=== PATIENT | female | born 1955 | race Caucasian/White ===

== ENCOUNTER 2017-08-31 18:01 | Emergency (ER) | payer MEDICAID ==
[2017-08-31] MEDS: KETOROLAC 60 MG INJ IM (20:03)
[2017-08-31] MEDS: morphine 4 MG/ML VIAL IM (21:23)
== END 2017-08-31 23:17 | disposition left against medical advice (07) ==
LOC: FTE 18:01
DX: M79.601 Pain in right arm (principal); M54.2 Cervicalgia
CPT/HCPCS: 72100; 72125; 96372; 99285-25

== ENCOUNTER 2018-01-07 00:07 | Emergency (ER) | payer MEDICAID ==
[2018-01-07] MEDS: KETOROLAC 30 MG INJ IM (02:26)
== END 2018-01-07 02:45 | disposition home or self-care (01) ==
LOC: FTE 00:07
DX: K08.89 Other specified disorders of teeth and supporting structures (principal)
CPT/HCPCS: 96372; 99284-25

== ENCOUNTER 2018-05-23 18:51 | Emergency (ER) | payer MEDICAID ==
[2018-05-23] MEDS: AZITHROMYCIN 250 MG TAB PO (20:07)
[2018-05-23] MEDS: CEFTRIAXONE 250 MG INJ IM (20:08)
[2018-05-23 20:44] LABS: ADD UMIC YES; UR ASCORBIC ACID 40 mg/dL (NEGATIVE); UR BILIRUBIN (Dip) NEGATIVE (NEGATIVE); UR BLOOD (Dip) NEGATIVE (NEGATIVE); UR CLARITY CLOUDY (CLEAR); UR COLOR YELLOW (YELLOW); UR GLUCOSE (Dip) NEGATIVE (NEGATIVE); UR KETONES (Dip) NEGATIVE (NEGATIVE); UR LEUKOCYTE ESTERASE (Dip) 3+ Leu/ul (NEGATIVE); UR MUCUS FEW /HPF (NONE SEEN); UR NITRITE (Dip) NEGATIVE (NEGATIVE); UR RBC 14 /HPF (0-5); UR SPECIFIC GRAVITY (Dip) 1.021 (1.003-1.030); UR TOTAL PROTEIN (Dip) NEGATIVE (NEGATIVE); UR UROBILINOGEN (Dip) 1+ mg/dL (NEGATIVE); UR WBC > 182 /HPF (0-5)
== END 2018-05-23 21:15 | disposition home or self-care (01) ==
LOC: FTE 18:51
DX: N72 Inflammatory disease of cervix uteri (principal)
CPT/HCPCS: 81001; 81025; 87591; 96372; 99284-25

== ENCOUNTER 2018-05-27 23:21 | Emergency (ER) | payer MEDICAID ==
[2018-05-28] MEDS ORDERED: ONDANSETRON (ODT) 4 MG TAB ODT (02:07)
[2018-05-28] MEDS ORDERED: DICYCLOMINE 10 MG CAP PO (02:30)
== END 2018-05-28 05:06 | disposition left against medical advice (07) ==
LOC: FTE 23:21
DX: K52.9 Noninfective gastroenteritis and colitis, unspecified (principal)
CPT/HCPCS: 99282; Z7502

== ENCOUNTER 2018-10-18 10:09 | Emergency (ER) | payer MEDICAID ==
[2018-10-18 11:07] LABS: URINE BLOOD (Dip) POC Trace-intact (NEGATIVE); URINE GLUCOSE (Dip) POC Negative (NEGATIVE); URINE KETONES (Dip) POC Negative (NEGATIVE); URINE LEUKOCYTE EST (Dip) POC 3+ (NEGATIVE); URINE NITRITE (Dip) POC Negative (NEGATIVE); URINE TOTAL PROTEIN POC 2+ (NEGATIVE)
== END 2018-10-18 11:45 | disposition home or self-care (01) ==
LOC: FTE 10:09
DX: N39.0 Urinary tract infection, site not specified (principal)
CPT/HCPCS: 81003; 99283

== ENCOUNTER 2018-12-02 10:12 | Emergency (ER) | payer MEDICAID ==
[2018-12-02 11:08] LABS: ADD MAN DIFF? NO
[2018-12-02 11:09] LABS: ABNORMAL IP MESSAGE 1; BASOPHILS % 0.2 % (0.0-2.0); EOSINOPHILS # 0.2 10^3/ul (0.0-0.5); EOSINOPHILS % 2.4 % (0.0-7.0); HEMATOCRIT 42.8 % (37.0-47.0); HEMOGLOBIN 14.2 g/dl (12.0-16.0); LYMPHOCYTES # 0.6 10^3/ul (0.8-2.9); MEAN CORPUSCULAR HEMOGLOBIN 30.2 pg (29.0-33.0); MEAN CORPUSCULAR HGB CONC 33.2 g/dl (32.0-37.0); MEAN CORPUSCULAR VOLUME 91.1 fl (82.0-101.0); MEAN PLATELET VOLUME 9.9 fl (7.4-10.4); MONOCYTE # 0.2 10^3/ul (0.3-0.9); MONOCYTES % 2.3 % (0.0-11.0); NEUTROPHIL # 8.7 10^3/ul (1.6-7.5); NEUTROPHILS % 88.4 % (39.0-77.0); PLATELET COUNT 310 10^3/UL (140-415); RED CELL DISTRIBUTION WIDTH 12.4 % (11.5-14.5)
[2018-12-02 11:09] LABS: WHITE BLOOD COUNT 9.9 10^3/ul (4.8-10.8)
[2018-12-02 11:12] LABS: POSITIVE DIFF @See below
[2018-12-02] MEDS: SOD CHLORIDE 0.9% 500 ML IV (11:12)
[2018-12-02 11:33] LABS: ANION GAP 11 (5-13); BLOOD UREA NITROGEN 28 mg/dl (7-20); CALCIUM 9.5 mg/dl (8.4-10.2); CARBON DIOXIDE 25 mmol/L (21-31); CHLORIDE 103 mmol/L (97-110); CREATININE 0.59 mg/dl (0.44-1.00); Estimated GFR > 60 mL/min (>60); GLUCOSE 90 mg/dl (70-220); POTASSIUM 4.5 mmol/L (3.5-5.1); SODIUM 139 mmol/L (135-144)
[2018-12-02 11:44] LABS: TROPONIN-I < 0.012 ng/ml (0.000-0.120)
== END 2018-12-02 12:12 | disposition home or self-care (01) ==
LOC: E/R 10:12
DX: R42 Dizziness and giddiness (principal)
CPT/HCPCS: 36415; 71045; 80048; 82962; 84484; 85025; 93005; 99285-25

== ENCOUNTER 2019-03-30 07:19 | Emergency (ER) | payer MEDICAID | END 2019-03-30 08:09 | disposition home or self-care (01) | LOC: FTE 07:19 | DX: S90.862A Insect bite (nonvenomous), left foot, initial encounter (principal); W57.XXXA Bitten or stung by nonvenomous insect and other nonvenomous arthropods, initial encounter; Y92.9 Unspecified place or not applicable | CPT/HCPCS: 99283 ==

== ENCOUNTER 2019-05-03 23:56 | Emergency (ER) | payer MEDICAID ==
[2019-05-04] MEDS: LIDOCAINE/MYLANTA 40 ML BTL PO (02:20)
[2019-05-04] MEDS: BISACODYL 10 MG SUPP PR (02:20)
[2019-05-04 02:35] LABS: ADD MAN DIFF? NO; BASOPHIL # 0.1 10^3/ul (0.0-0.1); BASOPHILS % 0.9 % (0.0-2.0); EOSINOPHILS # 0.3 10^3/ul (0.0-0.5); EOSINOPHILS % 4.5 % (0.0-7.0); HEMATOCRIT 42.2 % (37.0-47.0); HEMOGLOBIN 13.6 g/dl (12.0-16.0); LYMPHOCYTES # 2.2 10^3/ul (0.8-2.9); LYMPHOCYTES % 32.2 % (15.0-51.0); MEAN CORPUSCULAR HEMOGLOBIN 30.2 pg (29.0-33.0); MEAN CORPUSCULAR HGB CONC 32.2 g/dl (32.0-37.0); MEAN CORPUSCULAR VOLUME 93.8 fl (82.0-101.0); MEAN PLATELET VOLUME 9.4 fl (7.4-10.4); MONOCYTE # 0.7 10^3/ul (0.3-0.9); MONOCYTES % 10.6 % (0.0-11.0); NEUTROPHIL # 3.6 10^3/ul (1.6-7.5); NEUTROPHILS % 51.1 % (39.0-77.0); PLATELET COUNT 358 10^3/UL (140-415)
[2019-05-04] MEDS: FAMOTIDINE 20 MG INJ IV (02:38)
[2019-05-04] MEDS: KETOROLAC 30 MG INJ IV (02:38)
[2019-05-04 02:48] LABS: URINE BLOOD (Dip) POC Negative (NEGATIVE); URINE GLUCOSE (Dip) POC Negative (NEGATIVE); URINE KETONES (Dip) POC Negative (NEGATIVE); URINE LEUKOCYTE EST (Dip) POC Negative (NEGATIVE); URINE NITRITE (Dip) POC Negative (NEGATIVE); URINE TOTAL PROTEIN POC 1+ (NEGATIVE)
[2019-05-04 02:48] LABS: URINE PH (Dip) POC 7.5 (5.0-8.5)
[2019-05-04 02:54] LABS: ALANINE AMINOTRANSFERASE 34 IU/L (13-69); ALBUMIN/GLOBULIN RATIO 1.29; ALKALINE PHOSPHATASE 74 IU/L (42-121); ANION GAP 6 (5-13); ASPARTATE AMINO TRANSFERASE 34 IU/L (15-46); BILIRUBIN,INDIRECT 0.9 mg/dl (0-1.1); BILIRUBIN,TOTAL 0.9 mg/dl (0.2-1.3); BLOOD UREA NITROGEN 23 mg/dl (7-20); CALCIUM 10.1 mg/dl (8.4-10.2); CARBON DIOXIDE 31 mmol/L (21-31); CHLORIDE 102 mmol/L (97-110); CREATININE 0.75 mg/dl (0.44-1.00); Estimated GFR > 60 mL/min (>60); GLUCOSE 88 mg/dl (70-220); LIPASE 82 U/L (23-300); POTASSIUM 4.7 mmol/L (3.5-5.1); SODIUM 139 mmol/L (135-144); TOTAL PROTEIN 7.1 g/dl (6.1-8.1)
== END 2019-05-04 03:51 | disposition home or self-care (01) ==
LOC: E/R 23:56
DX: K59.00 Constipation, unspecified (principal); R11.0 Nausea
CPT/HCPCS: 36415; 80053; 81003; 83690; 85025; 96374; 96375; 99284-25